=== PATIENT | male | born 1965 | race Caucasian/White ===

== ENCOUNTER → 2019-04-20 10:03 | Outpatient (CLI) | payer OTHER, SELFPAY ==
[2019-04-20 10:38] LABS: Add Manual Diff / Slide Review NO; Basophils Absolute Auto 0 /uL (0-100); Basophils Percent Auto 0.8 % (0-2); Eosinophils Absolute Auto 400 /uL (0-450); Eosinophils Percent Auto 6.7 % (2-4); Hematocrit 44.9 % (41-53); Hemoglobin 15.3 g/dL (13.5-17.5); Lymphocytes Absolute Auto 1800 /uL (1100-4500); Lymphocytes Percent Auto 31.5 % (25-40); Mean Corpuscular Hemoglobin 30.2 PG (26-34); Mean Corpuscular Volume 88.9 fL (80-100); Monocytes Absolute Auto 500 /uL (0-900); Monocytes Percent Auto 9.1 % (3-14); Neutrophils Absolute Auto 2900 /uL (1500-7000); Neutrophils Percent Auto 51.9 % (50-75); Platelet Count 285 X10^3/uL (150-400); Red Blood Cell Count 5.05 X10^6/uL (4.5-5.9); Red Cell Distribution Width 13.6 % (11.6-14.8); White Blood Cell Count 5.6 X10^3/uL (4.5-11.0)
[2019-04-20 10:48] LABS: Alanine Aminotransferase 31 IU/L (<50); Albumin 4.3 g/dL (3.5-5.0); Albumin Globulin Ratio 1.4 (1.0-2.8); Alkaline Phosphatase 40 U/L (38-126); Aspartate Aminotransferase 18 IU/L (17-59); Bilirubin Total 0.5 mg/dL (0.2-1.3); Blood Urea Nitrogen 14 mg/dL (9-20); Carbon Dioxide 29 mmol/L (22-32); Chloride 105 mmol/L (98-107); Cholesterol 225 mg/dL (140-199); Estimated Glomerular Filt Rate > 60.0 mL/min (>60); Glucose 89 mg/dL (70-100); HDL Cholesterol 37 mg/dL (40-60); HEMOLYSIS < 15 (0-50); LDL Cholesterol Calculated 151 mg/dL (<100); Potassium 4.6 mmol/L (3.4-5.1); Sodium 141 mmol/L (137-145); Total Protein 7.3 g/dL (6.3-8.2); Triglycerides 186 mg/dL (35-150)
[2019-04-20 11:41] LABS: TSH w/ Reflex to FT4 2.49 uIU/mL (0.47-4.68)
== END ==
PROVIDERS: PCP Family Medicine; Visit Provider Family Medicine
DX: R10.30 Lower abdominal pain, unspecified (principal); R68.89 Other general symptoms and signs
CPT/HCPCS: 36415; 80053; 80061; 84443; 85025; G0103

== ENCOUNTER → 2019-06-06 09:34 | Outpatient (CLI) | payer OTHER, SELFPAY ==
[2019-06-06 10:23] LABS: Influenza A - CEPHEID Flu A NEGATIVE (NEGATIVE); Influenza B - CEPHEID Flu B NEGATIVE (NEGATIVE)
== END ==
PROVIDERS: PCP Family Medicine; Visit Provider Physician Assistant
DX: R68.89 Other general symptoms and signs (principal)
CPT/HCPCS: 87502

== ENCOUNTER → 2020-07-22 08:46 | Outpatient (CLI) | payer OTHER, SELFPAY ==
[2020-07-22] MEDS: COVID-19 VACC #1, MRNA(MOD) 100 MCG/0.5 ML VIAL IM (08:52)
== END ==
PROVIDERS: PCP Family Medicine; Visit Provider Internal Medicine
DX: Z23 Encounter for immunization (principal)
CPT/HCPCS: 0011A; 91301

== ENCOUNTER → 2020-07-22 09:08 | Outpatient (CLI) | payer OTHER, SELFPAY ==
[2020-07-22 10:22] LABS: Add Manual Diff / Slide Review NO; Basophils Absolute Auto 0 /uL (0-100); Basophils Percent Auto 0.6 % (0-2); Eosinophils Absolute Auto 400 /uL (0-450); Eosinophils Percent Auto 5.3 % (2-4); Hematocrit 47.8 % (41-53); Hemoglobin 16.2 g/dL (13.5-17.5); Lymphocytes Absolute Auto 2000 /uL (1100-4500); Lymphocytes Percent Auto 28.4 % (25-40); Mean Corpuscular HGB Conc 33.9 % (30-36); Mean Corpuscular Hemoglobin 30.1 PG (26-34); Mean Corpuscular Volume 88.7 fL (80-100); Monocytes Absolute Auto 600 /uL (0-900); Monocytes Percent Auto 8.3 % (3-14); Neutrophils Absolute Auto 4000 /uL (1500-7000); Neutrophils Percent Auto 57.4 % (50-75); Platelet Count 263 X10^3/uL (150-400); Red Blood Cell Count 5.39 X10^6/uL (4.5-5.9); Red Cell Distribution Width 14.1 % (11.6-14.8)
[2020-07-22 10:38] LABS: Alanine Aminotransferase 42 IU/L (<50); Albumin 4.8 g/dL (3.5-5.0); Albumin Globulin Ratio 1.5 (1.0-2.8); Alkaline Phosphatase 40 U/L (38-126); Aspartate Aminotransferase 22 IU/L (17-59); Bilirubin Total 0.5 mg/dL (0.2-1.3); Blood Urea Nitrogen 19 mg/dL (9-20); Calcium 9.5 mg/dL (8.4-10.2); Carbon Dioxide 27 mmol/L (22-32); Chloride 103 mmol/L (98-107); Cholesterol 257 mg/dL (140-199); Estimated Glomerular Filt Rate > 60.0 mL/min (>60); Globulin 3.3 g/dL (1.7-4.1); Glucose 86 mg/dL (70-100); HDL Cholesterol 45 mg/dL (40-60); HEMOLYSIS < 15 (0-50); LDL Cholesterol Calculated 168 mg/dL (<100); Sodium 140 mmol/L (137-145); Total Protein 8.1 g/dL (6.3-8.2); Triglycerides 221 mg/dL (35-150); Uric Acid 8.3 mg/dL (3.5-8.5)
[2020-07-22 11:05] LABS: Prostate Specific Antigen Scrn 1.95 ng/mL (0.1-4.0)
[2020-07-22 11:18] LABS: TSH w/ Reflex to FT4 2.68 uIU/mL (0.47-4.68)
== END ==
PROVIDERS: PCP Family Medicine; Referring Provider Family Medicine; Visit Provider Family Medicine
DX: E78.5 Hyperlipidemia, unspecified (principal); M10.9 Gout, unspecified; Z12.5 Encounter for screening for malignant neoplasm of prostate; Z13.1 Encounter for screening for diabetes mellitus; Z13.6 Encounter for screening for cardiovascular disorders
CPT/HCPCS: 36415; 80053; 80061; 84443; 84550; 85025; G0103

== ENCOUNTER → 2020-08-19 08:35 | Outpatient (CLI) | payer OTHER, SELFPAY ==
[2020-08-19] MEDS: COVID-19 VACC #2, MRNA(MOD) 100 MCG/0.5 ML VIAL IM (08:42)
== END ==
PROVIDERS: PCP Family Medicine; Visit Provider Internal Medicine
DX: Z23 Encounter for immunization (principal)
CPT/HCPCS: 0012A; 91301

== ENCOUNTER → 2021-02-22 14:31 | Outpatient (CLI) | payer OTHER, SELFPAY ==
--- NOTE | 2021-02-22 14:33 | DI.US.S_ITS ---
PROCEDURE: US SCROTUM INDICATIONS: Left testicular pain TECHNIQUE: Real-time scanning was performed of the scrotum and testicles, with image documentation. Color and pulse Doppler interrogation was performed of both testicles. COMPARISON: None. FINDINGS: Right: Testicle is normal in size at 3.9 x 2.2 x 2.7 cm, and homogenous in echotexture. Epididymis is normal in overall size and morphology. No hydrocele or varicoceles. Overlying scrotal skin is normal in thickness. Tiny epididymal cyst measuring 4 mm in maximum diameter. Left: Testicle is normal in size at 3.5 x 1.9 x 2.3 cm, and homogeneous in echotexture. Epididymis is normal in overall size and morphology. No hydrocele or varicoceles. Overlying scrotal skin is normal in thickness. Palpable area corresponds to a tiny epididymal cyst measuring 4 mm in maximum diameter. Doppler: Color and pulse Doppler demonstrate normal and symmetric arterial flow in both testicles. IMPRESSION: 1. Normal testicles with no masses and normal flow. 2. Palpable lump likely corresponds to a tiny left epididymal cyst. 3. Otherwise unremarkable scrotal ultrasound. Dictated by: Ishmael Duron M.D. on 02/22/2021 at 17:12 Approved by: Ishmael Duron M.D. on 02/22/2021 at 17:21
== END ==
PROVIDERS: PCP Family Medicine; Referring Provider Specialist; Visit Provider Specialist
DX: N50.812 Left testicular pain (principal)
CPT/HCPCS: 76870

== ENCOUNTER → 2021-03-16 17:26 | Outpatient (CLI) | payer OTHER, SELFPAY ==
[2021-03-16 18:31] LABS: Influenza A - CEPHEID Flu A NEGATIVE (NEGATIVE); Influenza B - CEPHEID Flu B NEGATIVE (NEGATIVE)
[2021-03-16 18:57] LABS: COVID-19 CEPHEID PCR (VTM/NP) Negative (Negative)
== END ==
PROVIDERS: PCP Family Medicine; Visit Provider Physician Assistant
DX: Z20.822 Contact with and (suspected) exposure to COVID-19 (principal); J06.9 Acute upper respiratory infection, unspecified
CPT/HCPCS: 87502; U0003

== ENCOUNTER → 2021-04-11 09:33 | Outpatient (CLI) | payer OTHER, SELFPAY ==
--- NOTE | 2021-04-11 09:34 | DI.RAD.S_ITS ---
PROCEDURE: XR SHOULDER LT MIN 2V INDICATIONS: Left shoulder pain TECHNIQUE: 3 views of the shoulder were acquired. COMPARISON: None. FINDINGS: Bones: No fractures or dislocations. No suspicious bony lesions. Visualized ribs appear intact. Soft tissues: No suspicious soft tissue calcifications. IMPRESSION: No acute osseous abnormalities. Dictated by: Sid Shelton M.D. on 04/11/2021 at 13:24 Approved by: Sid Shelton M.D. on 04/11/2021 at 13:25
== END ==
PROVIDERS: PCP Family Medicine; Referring Provider Physician Assistant; Visit Provider Physician Assistant
DX: M25.512 Pain in left shoulder (principal)
CPT/HCPCS: 73030

== ENCOUNTER → 2021-10-10 15:44 | Outpatient (CLI) | payer OTHER, SELFPAY ==
[2021-10-10 17:21] LABS: Alanine Aminotransferase 36 IU/L (<50); Albumin 4.3 g/dL (3.5-5.0); Albumin Globulin Ratio 1.4 (1.0-2.8); Alkaline Phosphatase 44 U/L (38-126); Aspartate Aminotransferase 18 IU/L (17-59); BUN Creatinine Ratio 19.8 (6-22); Bilirubin Total 0.5 mg/dL (0.2-1.3); Blood Urea Nitrogen 19 mg/dL (9-20); Calcium 9.3 mg/dL (8.4-10.2); Carbon Dioxide 29 mmol/L (22-32); Chloride 102 mmol/L (98-107); Estimated Glomerular Filt Rate > 60 mL/min (>60); Globulin 3.1 g/dL (1.7-4.1); Glucose 94 mg/dL (70-100); HEMOLYSIS < 15 (0-50); Potassium 5.1 mmol/L (3.4-5.1); Sodium 137 mmol/L (137-145); Total Protein 7.4 g/dL (6.3-8.2); Uric Acid 3.7 mg/dL (3.5-8.5)
== END ==
PROVIDERS: PCP Family Medicine; Referring Provider Family Medicine; Visit Provider Family Medicine
DX: M1A.09X0 Idiopathic chronic gout, multiple sites, without tophus (tophi) (principal)
CPT/HCPCS: 36415; 80053; 84550

== ENCOUNTER → 2021-10-16 11:00 | Outpatient (CLI) | payer OTHER, SELFPAY ==
--- NOTE | 2021-10-16 11:19 | DI.RAD.S_ITS ---
PROCEDURE: XR FOOT RT MIN 3V INDICATIONS: foot pain TECHNIQUE: 3 views of the foot were acquired. COMPARISON: [facility], , FOOT 3V LEFT, 04/02/2014, 9:21. FINDINGS: Bones: No fractures or dislocations. No suspicious bony lesions. Soft tissues: No tibiotalar joint effusion. Achilles tendon appears normal. IMPRESSION: No evidence acute bony abnormality of the right foot. If clinical suspicion and/or symptoms persist, further assessment with repeat plain films, or advanced imaging (e.g., CT, MRI, or bone scan) may be helpful for further assessment. Dictated by: Ishmael Duron M.D. on 10/16/2021 at 17:11 Approved by: Ishmael Duron M.D. on 10/16/2021 at 17:12
--- NOTE | 2021-10-16 11:19 | DI.RAD.S_ITS ---
PROCEDURE: XR FOOT LT MIN 3V INDICATIONS: foot pain TECHNIQUE: 3 views of the foot were acquired. COMPARISON: [facility], , FOOT 3V LEFT, 04/02/2014, 9:21. FINDINGS: Bones: No fractures or dislocations. No suspicious bony lesions. Soft tissues: No tibiotalar joint effusion. Achilles tendon appears normal. IMPRESSION: No evidence acute bony abnormality of the left foot. If clinical suspicion and/or symptoms persist, further assessment with repeat plain films, or advanced imaging (e.g., CT, MRI, or bone scan) may be helpful for further assessment. Dictated by: Ishmael Duron M.D. on 10/16/2021 at 17:12 Approved by: Ishmael Duron M.D. on 10/16/2021 at 17:13
[2021-10-16 12:41] LABS: C-Reactive Protein Quant < 0.5 mg/dL (<1.0)
[2021-10-16 13:31] LABS: Erythrocyte Sedimentation Rate 5 MM/HR (0-15)
== END ==
PROVIDERS: PCP Family Medicine; Referring Provider Family Medicine; Visit Provider Family Medicine
DX: M1A.09X0 Idiopathic chronic gout, multiple sites, without tophus (tophi) (principal); M79.673 Pain in unspecified foot; M79.671 Pain in right foot; M79.672 Pain in left foot
CPT/HCPCS: 36415; 73630; 85651; 86140

== ENCOUNTER 2024-11-03 16:38 | Emergency (ER) | payer OTHER, SELFPAY ==
[2024-11-03 17:05] VITALS: BP 121/60; PULSE 93; RESP 18; TEMP 37.5; O2SAT 96; BMI 28.2
--- NOTE | 2024-11-03 17:44 | DI.RAD.S_ITS ---
PROCEDURE: XR CHEST 1V INDICATIONS: fever, headache, neck pain TECHNIQUE: One view of the chest was acquired. COMPARISON: None. FINDINGS: Surgical changes and devices: None. Lungs and pleura: Lungs are clear. No pleural effusions or pneumothorax. Mediastinum: Mediastinal contours appear normal. Heart size is normal. Bones and chest wall: No suspicious bony lesions. Overlying soft tissues appear unremarkable. IMPRESSION: No acute cardiopulmonary abnormality is seen. Dictated by: Ishmael Duron M.D. on 11/03/2024 at 18:41 Approved by: Ishmael Duron M.D. on 11/03/2024 at 18:41
[2024-11-03 18:12] LABS: Add Manual Diff / Slide Review NO; Hematocrit 44.5 % (41-53); Hemoglobin 15.1 g/dL (13.5-17.5); Lymphocytes Absolute Auto 1000 /uL (1100-4500); Mean Corpuscular HGB Conc 33.9 % (30-36); Mean Corpuscular Hemoglobin 30.7 PG (26-34); Mean Corpuscular Volume 90.7 fL (80-100); Platelet Count 216 X10^3/uL (150-400)
[2024-11-03 18:22] LABS: Lactate (Lactic Acid) 1.3 mmol/L (0.7-2.1)
[2024-11-03 18:23] LABS: Alanine Aminotransferase 46 IU/L (<50); Albumin 4.4 g/dL (3.5-5.0); Albumin Globulin Ratio 1.2 (1.0-2.8); Alkaline Phosphatase 54 U/L (38-126); Blood Urea Nitrogen 12 mg/dL (9-20); Calcium 8.9 mg/dL (8.4-10.2); Carbon Dioxide 26 mmol/L (22-32); Chloride 99 mmol/L (98-107); Estimated Glomerular Filt Rate > 60 mL/min (>60); Globulin 3.7 g/dL (1.7-4.1); Glucose 109 mg/dL (70-99); HEMOLYSIS < 15 (0-50); Potassium 4.4 mmol/L (3.4-5.1); Sodium 133 mmol/L (137-145); Total Protein 8.1 g/dL (6.3-8.2)
[2024-11-03 18:50] LABS: Coronavirus NL 63 Not Detected (Not Detect); SARS- CoV-2 Not Detected (Not Detecte)
[2024-11-03 19:51] VITALS: BP 126/60; PULSE 93; TEMP 37.4; O2SAT 99
[2024-11-03] MEDS: SODIUM CHLORIDE 0.9% 1,000 ML 1000 ML IV (21:17)
[2024-11-03 21:18] VITALS: TEMP 37.1
[2024-11-03] MEDS: KETOROLAC 30 MG/ML VIAL 15 MG IV (21:18)
[2024-11-03 21:30] VITALS: BP 150/75; PULSE 95; RESP 16; O2SAT 97
--- NOTE | 2024-11-03 21:30 | ED_ITS ---
HPI - Fever General Chief Complaint: Fever Stated Complaint: [facility]: fever due to tic bite Time Seen by Provider: 11/03/24 17:43 Source: patient Mode of arrival: Wheelchair History of Present Illness HPI Narrative: Patient is a 59-year-old male with a past medical history of hyperlipidemia, gout, comes into the ED from home for evaluation of myalgias fever, [place], states he did notice a tick on his shoulder, as well as other possible insect bites, he states that since then he has not been feeling well, was seen at the walk-in clinic and was sent in due to persistent symptoms. To note patient was seen on 11/01 at the walk-in clinic and was prescribed doxycycline and a Lyme test was ordered. He is now stating that he is having neck stiffness along with a headache, Related Data Previous Rx's ?Medication ?Instructions ?Recorded allopurinol 300 mg tablet See Rx Instructions .Route 0 09/05/23 .COMPLEX #90 tabs colchicine 0.6 mg tablet 0.6 mg PO BID #30 tabs 09/04 atorvastatin 20 mg tablet (Lipitor) 20 mg PO BEDTIME # 30 tabs 09/16/23 doxycycline hyclate 100 mg capsule 200 mg (2 x 100 mg) PO ONCE #2 caps 11/01/24 doxycycline hyclate 100 mg capsule 100 mg PO BID 10 da ys #20 caps 11/04/24 Allergies Allergy/AdvReac Type Severity Reaction Status Date / Time hydrocodone AdvReac Mild NAUSEA Verified 11/01/24 09:11 oxycodone AdvReac Mild NAUSEA Verified 11/01/24 09:11 Review of Systems Review of Systems Narrative: General: Positive fever, chills HEENT: Positive headache, denies eye drainage, eye irritation, head trauma, sore throat, voice change Cardiovascular: Denies any chest pain, palpitations, tachycardia Respiratory: Denies any shortness of breath, cough, wheeze, stridor GI/: Denies any abdominal pain, nausea, vomiting, diarrhea, bright red blood per rectum, melanotic stools, urinary frequency, urinary retention, dysuria, hematuria MSK: Positive myalgias, Denies any joint pain, swelling Skin: Denies any rashes, lesions, discoloration Neuro: Denies any headache, lightheadedness, dizziness, fainting, weakness Psych: Denies SI/HI Patient History Medical History (Updated 11/04/24 @ 01:43 by Hemanth Carcamo DO) Acute sinusitis Epididymal cyst Left testicular pain Flu-like symptoms Social History marital status: Previous occupational history: optical sales associate Smoking Status: Never smoker alcohol intake: current substance use type: does not use caffeine: Yes Type(s) of exercise: none Smoking Status: Never smoker Exam Initial Vital Signs Initial Vital Signs: Vital Signs Temperature 99.5 F 11/03/24 17:05 Pulse Rate 93 H 11/03/24 17:05 Respiratory Rate 18 11/03/24 17:05 Blood Pressure 121/60 11/03/24 17:05 Pulse Oximetry 96 11/03/24 17:05 Oxygen Delivery Method Room Air 11/03/24 17:05 Procedures Lumbar Puncture Time of procedure: 23:47 Time Out Performed: Yes Patient Position: upright Skin Prep: Povidone-Iodine 1% Local Anesthetic: lidocaine 1% Amount of anesthesia used (mL): 5 Spinal Needle Gauge: 22G Interspace Used: L4-L5 Fluid Initially Obtained: clear Complications: none Course Orders Ordered: ED Orders 11/03/24 17:44 CXR [XR chest 1V] Stat 11/03/24 17:54 Respiratory Panel (Film Array) Stat 11/03/24 18:06 Blood Culture Stat Complete Blood Count AUTO DIFF Stat Comprehensive Metabolic Panel Stat Lactate (Lactic Acid) Stat 11/03/24 23:50 CSF culture Stat Cell Count w Diff CSF Stat Glucose CSF Stat HOLD TUBE CSF Stat Meningitis Panel (Film Array) Stat Total Protein CSF Stat Vancomycin HCl/Dextrose (Vancomycin) 2,000 mg in 400 mls @ 200 mls/hr IV NOW ABNER Last Admin: 11/03/24 23:53 Dose: 200 mls/hr Documented By: VIKA Discontinued Medications Dexamethasone (Dexamethasone 10 Mg/Ml Vial) 10 mg IV NOW ONE Stop: 11/03/24 21:41 Last Admin: 11/03/24 22:25 Dose: 10 mg Documented By: VIKA Diphenhydramine HCl (Diphenhydramine 50 Mg/Ml Vial) 25 mg IV NOW ONE Stop: 11/04/24 00:06 Last Admin: 11/04/24 00:37 Dose: 25 mg Documented By: VIKA Sodium Chloride (Normal Saline 0.9%) 1,000 mls @ 1,000 mls/hr IV BOLUS ONE Stop: 11/03/24 18:42 Last Infusion: 11/03/24 22:17 Dose: Infused Documented By: Admin: 11/03/24 21:17 Dose: 1,000 mls/hr Documented By: VIKA Ceftriaxone Sodium 1,000 mg/ (Sodium Chloride) 100 mls @ 200 mls/hr IV NOW ONE Stop: 11/03/24 21:41 Last Infusion: 11/03/24 23:08 Dose: Infused Documented By: Admin: 11/03/24 22:38 Dose: 200 mls/hr Documented By: VIKA Ampicillin Sodium 2,000 mg/ (Sodium Chloride) 100 mls @ 200 mls/hr IV NOW ONE Stop: 11/03/24 21:41 Last Infusion: 11/03/24 23:40 Dose: Infused Documented By: Admin: 11/03/24 23:10 Dose: 200 mls/hr Documented By: VIKA Acyclovir 1,000 mg/ Dextrose 250 mls @ 250 mls/hr IV NOW ONE Stop: 11/03/24 21:41 Last Infusion: 11/03/24 23:30 Dose: Infused Documented By: Admin: 11/03/24 22:30 Dose: 250 mls/hr Documented By: VIKA Ketorolac Tromethamine (Ketorolac 30 Mg/Ml Vial) 15 mg IV NOW ONE Stop: 11/03/24 17:44 Last Admin: 11/03/24 21:18 Dose: 15 mg Documented By: VIKA Metoclopramide HCl (Metoclopramide 10 Mg/2 Ml Inj) 10 mg IV NOW ONE Stop: 11/04/24 00:06 Last Admin: 11/04/24 00:37 Dose: 10 mg Documented By: VIKA Morphine Sulfate (Morphine 4 Mg/Ml Inj) 4 mg IV NOW ONE Stop: 11/03/24 21:49 Last Admin: 11/03/24 22:23 Dose: 4 mg Documented By: VIKA Ondansetron HCl (Ondansetron 4 Mg/2 Ml Inj) 4 mg IV NOW ONE Stop: 11/03/24 21:49 Last Admin: 11/03/24 22:21 Dose: 4 mg Documented By: VIKA Vital Signs Vital signs: Vital Signs - 8 hr 11/03/24 19:51 11/03/24 21:18 11/03/24 21:30 Temperature 99.3 F 98.7 F Pulse Rate 93 H 95 H Respiratory Rate 16 Blood Pressure 126/60 150/75 H Pulse Oximetry 99 97 Oxygen Delivery Method Room Air Room Air 11/03/24 22:00 11/04/24 00:00 11/04/24 00:00 Temperature Pulse Rate 93 H 88 85 Respiratory Rate 16 20 18 Blood Pressure 121/61 129/70 121/65 Pulse Oximetry 93 94 93 Oxygen Delivery Method Room Air Room Air Room Air 11/04/24 00:30 11/04/24 00:47 11/04/24 01:00 Temperature Pulse Rate 80 80 Respiratory Rate 16 Blood Pressure 114/64 113/62 Pulse Oximetry 94 93 Oxygen Delivery Method Room Air 11/04/24 01:00 Temperature Pulse Rate 78 Respiratory Rate Blood Pressure Pulse Oximetry 93 Oxygen Delivery Method MDM - Fever Differential Diagnosis Differential diagnosis: Likely fever of unknown origin, community acquired pneumonia, viral infection and other (Encephalitis, meningitis) Lab Data 11/03/24 18:06 11/03/24 18:06 Labs: Lab Results 11/03/24 11/03/24 11/03/24 Range/Units 17:54 18:06 23:50 WBC 14.5 H (4.5-11.0) X10^3/uL RBC 4.91 (4.5-5.9) X10^6/uL Hgb 15.1 (13.5-17.5) g/dL Hct 44.5 (41-53) % MCV 90.7 (80-100) fL MCH 30.7 (26-34) PG MCHC 33.9 (30-36) % RDW 13.8 (11.6-14.8) % Plt Count 216 (150-400) X10^3/uL Neut % (Auto) 83.3 H (50-75) % Lymph % (Auto) 6.6 L (25-40) % [place] % (Auto) 9.3 (3-14) % Eos % (Auto) 0.4 L (2-4) % Baso % (Auto) 0.4 (0-2) % Neut # (Auto) 67768 H (4216-4761) /uL Lymph # (Auto) 1000 L (0205-1196) /uL [place] # (Auto) 1400 H (0-900) /uL Eos # (Auto) 100 (0-450) /uL Baso # (Auto) 100 (0-100) /uL Sodium 133 L (137-145) mmol/L Potassium 4.4 (3.4-5.1) mmol/L Chloride 99 (98-107) mmol/L Carbon Dioxide 26 (22-32) mmol/L BUN 12 (9-20) mg/dL Creatinine 0.95 (0.66-1.25) mg/dL Estimated GFR > 60 (>60) mL/min BUN/Creatinine Ratio 12.6 (6-22) Glucose 109 H (70-99) mg/dL Lactate 1.3 (0.7-2.1) mmol/L Calcium 8.9 (8.4-10.2) mg/dL Total Bilirubin 0.8 (0.2-1.3) mg/dL AST 21 (17-59) IU/L ALT 46 (<50) IU/L Alkaline Phosphatase 54 (38-126) U/L Total Protein 8.1 (6.3-8.2) g/dL Albumin 4.4 (3.5-5.0) g/dL Globulin 3.7 (1.7-4.1) g/dL Albumin/Globulin Ratio 1.2 (1.0-2.8) CSF Tube Number 2 CSF Volume 3.0 ml CSF Appearance Clear (Clear) CSF Color Colorless (Colorless) CSF WBC 0 (0-5) MONO/uL CSF RBC 14 H (0-5) RBC /uL CSF Mononuclear WBCs Not Reportable CSF Polynuclear WBCs Not Reportable CSF Glucose 66 (40-70) mg/dL CSF Total Protein 42 (12-60) mg/dL CSF C.neoform/gat PCR Not detected (Not Detect) CSF CMV DNA (PCR) Not detected (Not Detect) CSF Enterovirus (PCR) Not detected (Not Detect) CSF E. coli (PCR) Not detected (Not Detect) CSF H. influenzae (PCR) Not detected (Not Detect) CSF HSV I (PCR) Not detected (Not Detect) CSF HSV II (PCR) Not detected (Not Detect) CSF HHV 6 (PCR) Not detected (Not Detect) CSF L.monocytogenes PCR Not detected (Not Detect) CSF N. meningitidis PCR Not detected (Not Detect) CSF Parechovirus (PCR) Not detected (Not Detect) CSF S. agalactiae (PCR) Not detected (Not Detect) CSF S. pneumoniae (PCR) Not detected (Not Detect) CSF VZV (PCR) Not detected (Not Detecte) Chlamy pneumoniae PCR Not detected (Not Detect) Adenovirus (PCR) Not detected (Not Detect) B. pertussis DNA (PCR) Not detected (Not Detect) B.parapertussis DNA PCR Not detected (Not Detecte) Coronavirus OC43 (PCR) Not detected (Not Detect) Coronavirus HKU1 (PCR) Not detected (Not Detect) Coronavirus 229E (PCR) Not detected (Not Detect) SARS-CoV-2 (PCR) Not detected (Not Detecte) Coronavirus NL63 (PCR) Not detected (Not Detect) Human Metapneumovir PCR Not detected (Not Detect) Influenza Type A (PCR) Not detected (Not Detect) Influenza Type B (PCR) Not detected (Not Detect) M. pneumoniae (PCR) Not detected (Not Detect) Parainfluenza 1 (PCR) Not detected (Not Detect) Parainfluenza 2 (PCR) Not detected (Not Detect) Parainfluenza 3 (PCR) Not detected (Not Detect) Parainfluenza 4 (PCR) Not detected (Not Detect) RSV (PCR) Not detected (Not Detect) Entero/Rhino (PCR) Not detected (Not Detect) Imaging Data Chest x-ray: Radiologist's Impression: [address] [address] XRay Report Signed Patient: Cas Harris MR#: [id number] : 1965 Acct:[id number] Age/Sex: 59 / M Date of Service: 11/03/24 Loc: ED Accession Number: [id number] Procedure: XR chest 1V Ordering Provider: Kely Kendrick MD PROCEDURE: XR CHEST 1V INDICATIONS: fever, headache, neck pain TECHNIQUE: One view of the chest was acquired. COMPARISON: None. FINDINGS: Surgical changes and devices: None. Lungs and pleura: Lungs are clear. No pleural effusions or pneumothorax. Mediastinum: Mediastinal contours appear normal. Heart size is normal. Bones and chest wall: No suspicious bony lesions. Overlying soft tissues appear unremarkable. IMPRESSION: No acute cardiopulmonary abnormality is seen. MDM Narrative Medical decision making narrative: Patient is a 59-year-old male with a past medical history of hyperlipidemia gout, presenting to the emergency department from home for evaluation of headache neck stiffness fever chills and tick exposure. Patient states that he was out in the [place] ago noted that he was bit by a tick, states that he went to the outpatient clinic and was given dose of prophylactic antibiotics, he presented today due to persistent symptoms started stating that he was having headache neck stiffness also noted to have a fever. On initial evaluation patient complaining of headache but no focal deficits, patient's lab work did note to have a slight leukocytosis of 14.5, Chem panel otherwise unremarkable, chest x-ray without any acute cardiopulmonary abnormality, patient did have viral panel performed here which was negative, given possible meningitis patient was consented and had lumbar puncture performed here in the emergency department, meningitis panel negative, CSF showing normal glucose normal protein no WBC not consistent with meningitis or encephalitis, patient had significant improvement of symptoms after administration of medication here, he was given prophylactic antibiotics and antivirals for meningitis. Given patient with tick exposure and persistent leukocytosis will treat patient with doxycycline and instructed patient follow up with primary care in outpatient setting, he verbalized understanding of this and agrees to being discharged home with outpatient follow up 2145: We will prophylactically treat for meningitis at this time, medications ordered, consent signed for lumbar puncture, vancomycin, ceftriaxone, ampicillin, acyclovir, Decadron ordered 2347: Lumbar puncture was performed, we will have patient likely recumbent Discharge Plan Departure Patient Disposition: Home Clinical Impression: Fever of unknown origin Instructions: DI for Lyme Disease Activity Restrictions/Additional Instructions: Please follow up with your primary care doctor Please read the discharge instructions sheet carefully and bring all papers to all doctor follow-up visits, as it may contain information that your doctor may want to see. Disease processes change and evolve, if your symptoms worsen or if you develop any new symptoms that are concerning to you please return for evaluation. Your evaluation today does not show any evidence of any life- threatening/serious illnesses requiring admission to the hospital or surgery. Please follow-up with your doctor for re-evaluation in approximately 1 day. Seek immediate medical attention for any worrisome symptoms. *If you do not have a primary care provider please contact the [facility] Resource line at [phone]. They will ask some questions about your medical history and help get you set up with a doctor in the community. Prescriptions: New doxycycline hyclate 100 mg capsule 100 mg PO BID 10 Days Qty: 20 0RF No Action doxycycline hyclate 100 mg capsule 200 mg PO ONCE Qty: 2 0RF atorvastatin [Lipitor] 20 mg tablet 20 mg PO BEDTIME Qty: 30 5RF allopurinol 300 mg tablet See Rx Instructions .ROUTE .COMPLEX Qty: 90 3RF Dose Instruction: TAKE ONE TABLET BY MOUTH DAILY Rx Instructions: TAKE ONE TABLET BY MOUTH DAILY colchicine 0.6 mg tablet 0.6 mg PO BID Qty: 30 11RF Referrals: Ponce Hauser MD [Primary Care Provider, Family Practice] Stand Alone Forms: Patient Portal/API
[2024-11-03 22:00] VITALS: BP 121/61; PULSE 93; RESP 16; O2SAT 93
[2024-11-03] MEDS: ONDANSETRON 4 MG/2 ML INJ IV (22:21)
[2024-11-03] MEDS: MORPHINE 4 MG/ML INJ IV (22:23)
[2024-11-03] MEDS: DEXAMETHASONE 10 MG/ML VIAL IV (22:25)
[2024-11-03] MEDS: ACYCLOVIR 1,000 MG in DEXTROSE 5% IN WATER 250 ML 250 MG IV (22:30)
[2024-11-03] MEDS: AMPICILLIN 2,000 MG in SODIUM CHLORIDE 0.9% 100 ML 200 MG IV (23:10)
[2024-11-03] MEDS: VANCOMYCIN 2,000 MG/400 ML PIGGYBACK 200 MG IV (23:53)
[2024-11-04] VITALS: BP 121/65; BP 129/70; PULSE 85; PULSE 88; RESP 18; RESP 20; O2SAT 93; O2SAT 94
[2024-11-04 00:30] VITALS: BP 114/64; PULSE 80; RESP 16; O2SAT 94
[2024-11-04] MEDS: diphenhydrAMINE 50 MG/ML VIAL 25 MG IV (00:37)
[2024-11-04] MEDS: METOCLOPRAMIDE 10 MG/2 ML INJ IV (00:37)
[2024-11-04 00:42] LABS: CSF Tube Volume 3.0 mL; Red Blood Cell CSF 14 RBC /uL (0-5); White Blood Cell CSF 0 MONO/uL (0-5)
[2024-11-04 00:47] VITALS: PULSE 80; O2SAT 93
[2024-11-04 01:00] VITALS: BP 113/62; PULSE 78; O2SAT 93
[2024-11-04 01:30] VITALS: BP 116/66; PULSE 78; O2SAT 94
[2024-11-04 02:00] VITALS: BP 102/62; PULSE 85; O2SAT 94
--- NOTE | 2024-11-04 18:10 | EKG_ITS ---
[address] [address] Test Date: 2024-11-03 Pat Name: Cas Harris Department: Room: Gender: Male Director Mortgage: [employer] : 1965 Requested By: Order Number: [id number] Reading MD: Espinoza Willson MD Measurements Intervals [place] Rate: 93 P: 48 AL: 160 QRS: 26 QRSD: 82 T: 10 QT: 314 QTc: 390 Interpretive Statements Normal sinus rhythm Electronically Signed On 11-04-2024 7:39:05 PDT by Espinoza Willson MD
== END 2024-11-04 02:14 | disposition home or self-care (01) ==
PROVIDERS: Emergency Medicine; Emergency Provider Student in an Organized Health Care Education/Training Program; PCP Family Medicine
DX: R50.9 Fever, unspecified (principal); R51.9 Headache, unspecified; W57.XXXA Bitten or stung by nonvenomous insect and other nonvenomous arthropods, initial encounter; M54.2 Cervicalgia
CPT/HCPCS: 36415; 62270; 71045; 80053; 82945; 83605; 84157; 85025; 87040; 87070; 87205; 87633; 87798; 89051; 93005; 93010; 96361; 96365; 96366; 96367; 96368; 96375; 99283; 99285; J0290; J0696; J1100; J1200; J1885; J2270; J2405; J2765; J3375

== ENCOUNTER → 2025-03-04 11:25 | Outpatient (CLI) | payer OTHER, SELFPAY ==
[2025-03-04 12:37] LABS: Appearance Urine UA CLEAR; Bilirubin Urine UA NEGATIVE (NEGATIVE); Color Urine UA YELLOW; Glucose Urine UA NEGATIVE (Negative); Ketones Urine UA NEGATIVE (NEGATIVE); Leukocyte Esterase Urine UA NEGATIVE (NEGATIVE); Nitrite Urine UA NEGATIVE (Negative); Occult Blood Urine UA NEGATIVE (Negative); Protein Urine UA NEGATIVE (Negative); Specific Gravity Urine UA 1.010 (1.000-1.035); Urobilinogen Urine UA 0.2 E.U./dL (0.2); pH Urine UA 7.0 (4.5-8.0)
[2025-03-04 12:48] LABS: Culture Indicated Urine Cult Not Indicated
[2025-03-04 12:52] LABS: Cholesterol 250 mg/dL (140-199); HDL Cholesterol 43 mg/dL (40-60); Triglycerides 177 mg/dL (35-150)
== END ==
LOC: LAB 11:26
PROVIDERS: PCP Family Medicine; Referring Provider Family Medicine; Visit Provider Family Medicine
DX: Z12.5 Encounter for screening for malignant neoplasm of prostate (principal); R31.9 Hematuria, unspecified; E78.2 Mixed hyperlipidemia
CPT/HCPCS: 36415; 80061; 81001; G0103